=== PATIENT | male | born 1955 | race Caucasian/White ===

== ENCOUNTER → 2023-11-14 12:10 | Outpatient (REF) | payer MEDICARE, OTHER, SELFPAY | LOC: RCS 12:10 | PROVIDERS: ATTENDING PHYSICIAN Internal Medicine; FAMILY PHYSICIAN Family Medicine | DX: Q23.1 Congenital insufficiency of aortic valve (principal); I35.0 Nonrheumatic aortic (valve) stenosis | CPT/HCPCS: 93306 ==

== ENCOUNTER → 2025-02-03 14:43 | Outpatient (REF) | payer MEDICARE, OTHER, SELFPAY | LOC: RCS 14:43 | PROVIDERS: ATTENDING PHYSICIAN Internal Medicine; FAMILY PHYSICIAN Family Medicine | DX: I35.0 Nonrheumatic aortic (valve) stenosis (principal); I77.810 Thoracic aortic ectasia; Q23.1 Congenital insufficiency of aortic valve | CPT/HCPCS: 93306 ==

== ENCOUNTER → 2025-02-17 13:38 | Outpatient (REF) | payer MEDICARE, OTHER, SELFPAY | LOC: RAD 13:38 | PROVIDERS: ATTENDING PHYSICIAN Thoracic Surgery (Cardiothoracic Vascular Surgery); FAMILY PHYSICIAN Family Medicine | DX: I77.810 Thoracic aortic ectasia (principal) | CPT/HCPCS: 75573; Q9967 ==

== ENCOUNTER 2025-02-19 07:25 | Day surgery (SDC) | payer MEDICARE, OTHER, SELFPAY ==
[2025-02-19] VITALS (9 sets, daily range): BP systolic 100–135; BP diastolic 67–87; BMI 26.4
[2025-02-19] MEDS: NSS 250 ML IV (08:14)
[2025-02-19 10:19] LABS: ACT-LR - POC 382 Seconds (116-155)
--- NOTE | 2025-02-19 10:38 | ITS.CL.CATH ---
[facility] - Catheterization
Cardiac Catheterization
Procedure Report:
CARDIAC CATHETERIZATION REPORT
Date of Procedure: 02/19/2025
Referring: Leo Hernández M.D.
Indication: Bicuspid aortic valve with severe aortic valve stenosis, thoracic aortic aneurysm.
PROCEDURE:
1. Right heart catheterization.
2. Coronary angiography.
3. Successful IFR of the mid LAD.
A total of 26 minutes of procedural/moderate sedation was utilized. An independent quality engineer medical device was present to assist with and help manage the patient's level of consciousness and physiologic status.
ACCESS:
1. 6 Telugu right radial artery using a modified Seldinger technique.
2. 5 Telugu right antecubital vein using a previously placed IV.
CATHETERS:
1. 5 Telugu balloon with.
2. 5 Telugu JL 3.5.
3. 5 Telugu AL-1.
4. 6 Telugu EBU 4.5 guiding catheter.
HEMODYNAMIC DATA
Weight (kg): 83.0
AO (s/d/x, mmHg): 117/76/93
LV (s/x, mmHg): Not obtained.
PCWP (a/v/x, mmHg): 02/21/10
PA (s/d/x, mmHg): 33/18/23
RV (s/x, mmHg): 35/7
RA (a/v/x, mmHg):
SVC SvO2 (%): 78.5
IVC SvO2 (%): Not obtained.
RA SvO2 (%): Not obtained.
RV SvO2 (%): Not obtained.
PA SvO2 (%): 72.4
SaO2 (%): 97.5
Hbg (g/dL): 14.4
[place]
CO (L/min): 5.12
CI (L/min/m2): 2.54
Thermodilution
CO (L/min): Not performed.
CI (L/min/m2): Not performed.
TPG (mmHg): 13
PVR (Hankins Units): 2.54
SVR (dynes*seconds*cm^-5): 1328
AVO2 Diff (Volume %): 4.92
Cardiac Power Output (evans): 1.06 (MAP * CO)/451 (normal 0.5 - 0.7; 0.4 - 0.6 in the elderly)
Cardiac Power Index (evans/m2): 0.52 (MAP * CI)/451
Cinthia: 1.9 (PAs-PAd)/RA
AV gradient (x, mmHg): Not obtained.
AV area (cm2): Not obtained.
MV gradient (x, mmHg): Not obtained.
MV area (cm2): Not obtained.
LEFT VENTRICULOGRAPHY: Not performed.
AORTOGRAPHY: Not performed.
CORONARY ANGIOGRAPHY
Dominance: Right.
Left Main: Large size, bifurcating vessel. There is no coronary artery disease.
LAD: Large size vessel giving rise to 4 diagonals. There is a 40% lesion in the mid LAD spanning the origin of the second diagonal.
Ramus: Congenitally absent.
Circumflex: Large size, nondominant vessel giving rise to 1 large obtuse marginal which supplies the lateral wall. There is no coronary artery disease.
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 There is no coronary artery disease.
INTERVENTIONS
1. Successful IFR of the 40% mid LAD lesion, demonstrating nonocclusive disease (IFR = 0.93).
Narrative:
The decision was made to perform physiologic testing. The diagnostic catheter was removed over a wire and exchanged for a(n) 6 Telugu EBU 4.5 guiding catheter. The guiding catheter was advanced into the ascending aorta and seated in the left main
coronary artery. Additional heparin was given to obtain an ACT greater than 250 seconds. An iFR wire was zeroed outside of the body, then inserted into the guiding sheath. The wire was advanced and the transducer was normalized just outside of the
guiding catheter tip. The wire was advanced into the mid/distal LAD, beyond the lesion spanning the origin of D2. Three iFR measurements were taken. The lesion was determined to be nonocclusive (0.93). Final angiography demonstrated stable coronary
anatomy.
Closure Device: Vascular band for the right radial artery, manual pressure for the right antecubital vein.
Radiation dose (mGy): 551
DAP (cm2.Gy): 29.0
Fluoroscopy time (minutes): 8.9
CONCLUSIONS:
1. 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
(iFR = 0.93).
2. Normal filling pressures (PCWP = 10 mmHg at 83.0 kg).
3. Normal cardiac performance measurements (cardiac index = 2.54 L/min/m�, a VO2 difference = 4.92 volume%, cardiac power output = 1.06 W, Cinthia = 1.9).
4. Bicuspid aortic valve with severe aortic valve stenosis by echocardiography.
5. At least moderate dilation of the thoracic ascending aortic aneurysm (4.5 cm) by CTA.
RECOMMENDATIONS:
1. Expectant management after cardiac catheterization via right radial/antecubital approach.
2. Limited weight bearing on the right wrist for one week.
3. Continue with surgical evaluation for surgical aortic valve replacement and thoracic aortic aneurysm management/replacement.
4. Continue metoprolol to mitigate any further aneurysm expansion.
5. Continue aspirin and rosuvastatin for primary prevention.
Copy to: Gino Pineda M.D., Leo Hernández M.D., Sara Garzon M.D.
Ag Calhoun, DO, FACC, FACP
[2025-02-19] MEDS: NSS 1000 IV (10:56)
== END 2025-02-19 13:51 | disposition home or self-care (01) ==
LOC: CATH 07:25
PROVIDERS: ATTENDING PHYSICIAN Internal Medicine Cardiovascular Disease; FAMILY PHYSICIAN Family Medicine; OTHER PHYSICIAN Internal Medicine
DX: I35.0 Nonrheumatic aortic (valve) stenosis (principal); I71.20 Thoracic aortic aneurysm, without rupture, unspecified; I25.10 Atherosclerotic heart disease of native coronary artery without angina pectoris
CPT/HCPCS: 99152; 99153; 93799; 85347; 93005; 93456; C1769; C1887; C1894; Q9967